=== PATIENT | female | born 1985 | race African-American/Black ===

== ENCOUNTER 2016-10-31 07:51 | Emergency (ER) | payer OTHER ==
[2016-10-31 07:59] VITALS: BP 123/75; PULSE 109; TEMP 99.3; BMI 39.4
[2016-10-31] MEDS ORDERED: IBUPROFEN 400 MG TABLET (FP) PO ONE ×2 (08:33→08:37)
--- NOTE | 2016-10-31 08:38 | PDOC ---
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 States took tramadol with minimal resolved. Timing/Duration: reports: changing over time, getting worse Severity: reports: moderate Past History - Travel Traveled outside of the country in the last 30 days: No Close contact w/someone who was outside of country & ill: No - Past Medical History Allergies/Adverse Reactions: Allergies Allergy/AdvReac Type Severity Reaction Status Date / Time No Known Allergies Allergy Verified 10/31/16 08:00 Home Medications: Ambulatory Orders Ibuprofen [Motrin -] 400 mg PO QID PRN #28 tablet 10/31/16 Oseltamivir Phosphate [Tamiflu -] 75 mg PO BID #10 capsule 10/31/16 Tramadol HCl [Ultram] 50 mg PO BID 10/31/16 Anemia: No Asthma: No Cancer: No 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11) CVA: No COPD: No CHF: No Dementia: No Diabetes: Yes (GESTATIONAL) GI Disorders: Yes (GERD,HEMORRHOIDS,CONSTIPATION) Disorders: Yes (RENAL CYST,FIBROIDS) HTN: No Hypercholesterolemia: No Liver Disease: Yes (HEMANGIOMA OF LIVER) Seizures: No Thyroid Disease: No - Immunization History Td Vaccination: Yes Immunization Up to Date: Yes (UNSURE) - Psycho/Social/Smoking Cessation Hx Anxiety: No Suicidal Ideation: No Smoking Status: No Smoking History: Never smoked Have you smoked in the past 12 months: No Number of Cigarettes Smoked Daily: 0 Hx Alcohol Use: No Drug/Substance Use Hx: No Substance Use Type: None Hx Substance Use Treatment: Yes Review of Systems - Review of Systems Able to Perform ROS?: Yes Is the patient limited Sinhala proficient: Yes Constitutional: Yes: Symptoms Reported, See HPI, Chills, Fever, Loss of Appetite , Malaise HEENTM: Yes: Symptoms Reported, See HPI, Ear Pain, Nose Congestion, Throat Pain , Difficulty Swallowing Respiratory: Yes: Symptoms reported, See HPI, Cough (nonproductive). No: Wheezing ABD/GI: Yes: Symptoms Reported, See HPI, Nausea Musculoskeletal: Yes: Symptoms Reported, See HPI, Joint Stiffness Integumentary: Yes: See HPI. No: Symptoms Reported Neurological: Yes: Symptoms reported, See HPI, Headache All Other Systems: Reviewed and Negative *Physical Exam - Vital Signs Last Vital Signs Temp Pulse Resp BP Pulse Ox 99.3 F 109 H 18 123/75 96 10/31/16 07:55 10/31/16 07:55 10/31/16 07:55 10/31/16 07:55 10/31/16 07:55 - Physical Exam General Appearance: Yes: Nourished, Appropriately Dressed, Apparent Distress, Mild Distress HEENT: positive: GORDON, TMs Normal (congested but landmarks easily visualized), Pharynx Normal, Pharyngeal Erythema, Nasal Congestion, Rhinorrhea Neck: positive: Supple, Lymphadenopathy (R), Lymphadenopathy (L) Respiratory/Chest: positive: Lungs Clear, Normal Breath Sounds Cardiovascular: positive: Regular Rhythm, Regular Rate Gastrointestinal/Abdominal: positive: Normal Bowel Sounds, Soft. 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 Will treat with Tamiflu *DC/Admit/Observation/Transfer Diagnosis at time of Disposition: Upper respiratory infection, acute - Discharge Dispostion Disposition: HOME Condition at time of disposition: Stable Admit: No - Prescriptions Prescriptions: Ibuprofen [Motrin -] 400 mg PO QID PRN #28 tablet PRN Reason: Pain Oseltamivir Phosphate [Tamiflu -] 75 mg PO BID #10 capsule - Patient Instructions Printed Discharge Instructions: DI for Viral Upper Respiratory Infection -- Adult Additional Instructions: Rest, drink lots of fluids: Teas, water, soups, Pedialyte Saltwater gargles Steamy showers/seem to face break up mucus Old-fashioned treatments help! Avoid contact with others until fevers and cough resolved as this is very contagious Lots of handwashing and good hygiene Continue [id number] medications for symptomatic relief Tylenol or Motrin for fever and pain Take all of Tamiflu as directed: 1 tab every 12 hours for 5 days Followup with private physician in one to 2 days as needed or if worsening Return to emergency department for worsened symptoms, fevers, dehydration Influenza takes between 5 and 7 days for resolution To not participate in any activity, work, or school until fevers and cough are gone for at least one day - Post Discharge Activity Work/School Note: Back to Work
== END 2016-10-31 08:41 | disposition home or self-care (01) ==
LOC: JER 07:51 → JERFT 07:51
DX: J06.9 Acute upper respiratory infection, unspecified (principal)
CPT/HCPCS: 99281-25

== ENCOUNTER 2016-11-06 20:04 | Emergency (ER) | payer OTHER ==
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
[2016-11-06 20:13] VITALS: BP 106/72; PULSE 88; BMI 37.8
[2016-11-06] MEDS ORDERED: SILVER SULFADIAZINE 1% TOP CREAM 50 GM JAR TP ONE ×2 (20:17→20:26)
[2016-11-06] MEDS ORDERED: KETOROLAC TROMETHAMINE 60 MG/2 ML VIAL ONE (20:17)
[2016-11-06] MEDS ORDERED: ACETAMINOPHEN 500 MG TABLET (FP) PO ONE (20:25)
[2016-11-06] MEDS ORDERED: ACETAMINOPHEN 325 MG TABLET (FP) ONE (20:26)
== END 2016-11-06 20:34 | disposition home or self-care (01) ==
LOC: FER 20:04
PROC: 2W2NX4Z Dressing of Right Upper Leg using Bandage (ICD-10-PCS; principal; 2016-11-06)
DX: T24.011A Burn of unspecified degree of right thigh, initial encounter (principal); X10.0XXA Contact with hot drinks, initial encounter; Y93.9 Activity, unspecified; Y92.9 Unspecified place or not applicable; K21.9 Gastro-esophageal reflux disease without esophagitis; D18.09 Hemangioma of other sites
CPT/HCPCS: 99281-25

== ENCOUNTER 2017-03-18 20:29 | Emergency (ER) | payer OTHER ==
[2017-03-18 20:43] VITALS: BP 114/82; PULSE 81; TEMP 98.6; BMI 37.8
[2017-03-18] MEDS ORDERED: ACETAMINOPHEN 500 MG TABLET (FP) PO ONE (20:43)
[2017-03-18] MEDS ORDERED: ACETAMINOPHEN 325 MG TABLET (FP) ONE (20:44)
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
== END 2017-03-18 20:48 | disposition home or self-care (01) ==
LOC: FER 20:29
DX: S63.502A Unspecified sprain of left wrist, initial encounter (principal); V43.42XA Person boarding or alighting a car injured in collision with other type car, initial encounter; Y93.89 Activity, other specified; Y92.410 Unspecified street and highway as the place of occurrence of the external cause
CPT/HCPCS: 99282-25

== ENCOUNTER 2018-09-08 10:11 | Emergency (ER) | payer OTHER ==
[2018-09-08 10:20] VITALS: TEMP 97.8; BMI 37.8
--- NOTE | 2018-09-08 11:19 | PDOC ---
History of Present Illness - General Chief Complaint: Head/Neck problem Stated Complaint: SENY BY PCP Time Seen by Provider: 09/08/18 10:32 History Source: Patient Exam Limitations: No Limitations - History of Present Illness Initial Comments: 33 yo F w no sig pmh presents to the ER from urgent care stating she has neck discomfort along with occasional numbness on the left side of her face. She reports that she was told by urgent care that she has an asymmetrical and needs to come in to be evaluated for it. I personally do not see any asymmetry in her smile. 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 She denies current chest pain, SOB, difficulty breathing, headache, blurry vision, arm or leg pain, back pain, abdominal pain, nausea, vomiting, recent fevers, chills infections, weakness, numbness, tingling or chills. PCP: Jose Manuel Carlton Allergies: NKA, NKDA Social Hx: Denies smoking, drinking, or other substance usage. 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11) CVA: No COPD: No CHF: No Dementia: No Diabetes: Yes (GESTATIONAL) GI Disorders: Yes (GERD,HEMORRHOIDS,CONSTIPATION) Disorders: Yes (RENAL CYST,FIBROIDS) HTN: No Hypercholesterolemia: No Liver Disease: Yes (HEMANGIOMA OF LIVER) Seizures: No Thyroid Disease: No - Immunization History Td Vaccination: Yes Immunization Up to Date: Yes (UNSURE) - Suicide/Smoking/Psychosocial Hx Smoking Status: No Smoking History: Never smoked Have you smoked in the past 12 months: No Number of Cigarettes Smoked Daily: 0 Hx Alcohol Use: No Drug/Substance Use Hx: No Substance Use Type: None Hx Substance Use Treatment: Yes Review of Systems - Review of Systems Constitutional: No: Chills, Diaphoresis, Fever, Loss of Appetite, Malaise HEENTM: No: Eye Pain, Blurred Vision, Tearing, Recent change in vision, Double Vision, Cataracts, Ear Pain, Ocular Prothesis, Ear Discharge, Nose Pain, Nose Congestion, Tinnitus, Nose Bleeding, Hearing Loss, Throat Pain, Throat Swelling , Mouth Pain, Dental Problems, Difficulty Swallowing, Mouth Swelling, Other Respiratory: No: Cough, Shortness of Breath, Stridor, Wheezing Cardiac (ROS): No: Chest Pain, Edema, Irregular Heart Rate, Lightheadedness, Palpitations, Syncope ABD/GI: No: Abdominal Distended, Abd. Pain w/ defecation, Blood Streaked Bowels , Constipated, Diarrhea, Nausea, Vomiting : No: Burning, Dysuria, Discharge Musculoskeletal: Yes: Neck Pain. No: Back Pain, Joint Pain, Muscle Pain Integumentary: No: Bruising, Dryness, Erythema Neurological: Yes: Numbness, Paresthesia. No: Headache, Seizure, Tingling, Tremors, Weakness Psychiatric: No: Anxiety, Depression, Frequent Crying Endocrine: No: Excessive Sweating, Flushing Hematologic/Lymphatic: No: Anemia, Blood Clots, Easy Bleeding *Physical Exam - Vital Signs Last Vital Signs Temp Pulse Resp BP Pulse Ox 97.8 F 78 18 131/81 99 09/08/18 10:14 09/08/18 10:14 09/08/18 10:14 09/08/18 10:14 09/08/18 10:14 - Physical Exam General Appearance: Yes: Nourished, Appropriately Dressed. No: Apparent Distress HEENT: positive: EOMI, GORDON, Normal ENT Inspection, Normal Voice, Hearing Grossly Normal, Other (No facial asymmetry ). negative: Muffled/Hoarse voice, Pharyngeal Erythema, Nasal Congestion, Rhinorrhea, Sinus Tenderness, Hearing Decreased Neck: positive: Trachea midline, Supple. negative: Rigid, Decreased range of motion, Lymphadenopathy (R), Lymphadenopathy (L) Respiratory/Chest: positive: Lungs Clear, Normal Breath Sounds. negative: Respiratory Distress, Accessory Muscle Use, Stridor Cardiovascular: positive: Regular Rhythm, Regular Rate, S1, S2 Vascular Pulses: Dorsalis-Pedis (R): 2+, Doralis-Pedis (L): 2+ Gastrointestinal/Abdominal: positive: Normal Bowel Sounds, Soft. negative: Guarding, Rebound Rectal Exam: positive: deferred Lymphatic: negative: Adenopathy Musculoskeletal: positive: Normal Inspection. negative: CVA Tenderness, CVA Tenderness (R), CVA Tenderness (L), Decreased Range of Motion, Vertebral Tenderness Extremity: positive: Normal Capillary Refill, Normal Inspection, Normal Range of Motion. 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 negative: Abnormal Cranial NS, EOM Palsy, Facial Droop, Numbness, Sensory Deficit, Confused, Disoriented, Depressed Affect Moderate Sedation - Procedure Monitoring Vital Signs: Procedure Monitoring Vital Signs Temperature 97.8 F 09/08/18 10:14 Pulse Rate 78 09/08/18 10:14 Respiratory Rate 18 09/08/18 10:14 Blood Pressure 131/81 09/08/18 10:14 O2 Sat by Pulse Oximetry (%) 99 09/08/18 10:14 ED Treatment Course - LABORATORY CBC & Chemistry Diagram: 09/08/18 12:31 09/08/18 12:31 Medical Decision Making - Medical Decision Making 33 yo F w no sig pmh presents to the ER from urgent care stating she has neck discomfort along with occasional numbness on the left side of her face. DDx IBNLT: Otto palsy, MSK neck strain, Carotid vascular injury, pulled muscle, cva/tia Plan: Cbc, Cmp, robaxin, motrin, +/- Neuro consult, re-assess. Labs unremarkable and WNL - Patient feels much better after robaxin and motrin. - Patient would like to get out of here. Will DC with PCP Fu *DC/Admit/Observation/Transfer Diagnosis at time of Disposition: Neck pain - Discharge Dispostion Disposition: HOME Condition at time of disposition: Improved Decision to Admit order: No - Referrals Referrals: Jose Manuel Carlton MD [Primary Care Provider] - - Patient Instructions Printed Discharge Instructions: Neck Pain (Alternative Therapy), DI for Neck Pain Additional Instructions: You came into the ER with neck pain. We believe this pain is musculoskeletal in nature. We are sending a muscle relaxer to your [facility] pharmacy, please make sure to go and pick it up. Please make sure to schedule an appointment with your primary care doctor in the next 3 to 5 days. Come back to the ER immediately if your pain worsens you get a bacd headache, have blurry vision, or any other new or worsening concerns. Thank you for coming to the [facility]. We hope you feel better soon! Print Language: CITIZEN [place] - Post Discharge Activity
--- NOTE | 2018-09-08 11:37 | PDOC ---
Attending Attestation - Resident Resident Name: Surya Feldman - ED Attending Attestation I have performed the following: I have examined & evaluated the patient, The case was reviewed & discussed with the resident, I agree w/resident's findings & plan, Exceptions are as noted - HPI HPI: 09/08/18 12:45 Ms Romo is a 33 yo F who presents to the ER with a complaint of left neck pain Pt has a h/o gestational diabetes, no diabetes now, no htn, no hld Pt states that her symptoms began yesterday, she awoke with them No trauma No arm or leg weakness She was seen at the urgent care today They were concerned about some asymmetry of her smile They were also concerned about "an infection" - Physicial Exam PE: 09/08/18 12:53 On examination: Pt is awake and alert She answers questions appropriately RRR CTA B/L NO nuchal rigidity Point tenderness left origin of the trapezius No sensory deficit No weakness CN intact - Medical Decision Making 09/08/18 13:21 will do labs Will do UA Re assess 09/08/18 14:34 Laboratory Tests 09/08/18 09/08/18 12:31 12:31 WBC 6.7 Hgb 14.1 Hct 40.1 Plt Count 357 BUN 12 Creatinine 0.9 UA negative Will discharge patient to home Follow up with PMD Can take robaxin for pain
[2018-09-08] MEDS ORDERED: IBUPROFEN 600 MG TABLET (FP) PO ONE ×2 (11:49→12:00)
[2018-09-08] MEDS ORDERED: METHOCARBAMOL 500 MG TABLET PO ONE (11:49)
[2018-09-08] MEDS ORDERED: METHOCARBAMOL 500 MG TABLET ONE (12:00)
[2018-09-08 12:48] LABS: BASO % 0.2 % (0-2.0); EOS % 1.1 % (0-4.5); HEMATOCRIT 40.1 % (32.4-45.2); HEMOGLOBIN 14.1 GM/dL (10.7-15.3); MCH 31.5 pg (25.7-33.7); MCHC 35.2 g/dl (32.0-36.0); MEAN CELL VOLUME 89.7 fl (80-96); MEAN PLT VOLUME 6.9 fl (7.5-11.1); MONO % 7.5 % (3.8-10.2); NEUT % 65.2 % (42.8-82.8); PLATELET COUNT 357 K/MM3 (134-434); RBC 4.46 M/mm3 (3.60-5.2); RDW 13.6 % (11.6-15.6); WHITE BLOOD COUNT 6.7 K/mm3 (4.0-10.0)
[2018-09-08 13:30] LABS: ALBUMIN 3.5 g/dl (3.4-5.0); ALK PHOS 57 U/L (45-117); ANION GAP 4 MMOL/L (8-16); BILIRUBIN,TOTAL 0.5 mg/dL (0.2-1); BLOOD UREA NITROGEN 12 mg/dL (7-18); CALCIUM 8.4 mg/dL (8.5-10.1); CHLORIDE 105 mmol/L (98-107); CO2 28 mmol/L (21-32); CREATININE 0.9 mg/dL (0.55-1.3); GLUCOSE,RANDOM 88 mg/dL (74-106); POTASSIUM 4.4 mmol/L (3.5-5.1); SGOT/AST 16 U/L (15-37); SGPT/ALT 34 U/L (13-61); SODIUM 137 mmol/L (136-145); TOT PROT 7.4 g/dl (6.4-8.2)
[2018-09-08 13:44] LABS: URINE APPEARANCE CLEAR; URINE BILIRUBIN NEGATIVE (<2.0 mg/dL); URINE COLOR LTYELLOW; URINE GLUCOSE (UA) NEGATIVE (NEGATIVE); URINE KETONE NEGATIVE (NEGATIVE); URINE LEUK ESTERASE NEGATIVE (NEGATIVE); URINE NITRITE NEGATIVE (NEGATIVE); URINE PROTEIN NEGATIVE (NEGATIVE); URINE UROBILINOGEN NEGATIVE mg/dL (0.2-1.0)
[2018-09-08 14:41] VITALS: BP 124/78; PULSE 63
== END 2018-09-08 14:37 | disposition home or self-care (01) ==
LOC: JER 10:11
DX: M54.2 Cervicalgia (principal); Z87.19 Personal history of other diseases of the digestive system; Z86.32 Personal history of gestational diabetes; Z87.448 Personal history of other diseases of urinary system
CPT/HCPCS: 36415; 80053; 81003; 85025; 99282-25

== ENCOUNTER 2019-05-12 23:19 | Emergency (ER) | payer OTHER ==
--- NOTE | 2019-05-13 00:56 | PDOC ---
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11) CVA: No COPD: No CHF: No Dementia: No Diabetes: Yes (GESTATIONAL) GI Disorders: Yes (GERD,HEMORRHOIDS,CONSTIPATION) Disorders: Yes (RENAL CYST,FIBROIDS) HTN: No Hypercholesterolemia: No Liver Disease: Yes (HEMANGIOMA OF LIVER) Seizures: No Thyroid Disease: No - Immunization History Td Vaccination: Yes Immunization Up to Date: Yes (UNSURE) - Suicide/Smoking/Psychosocial Hx Smoking Status: No Smoking History: Never smoked Have you smoked in the past 12 months: No Number of Cigarettes Smoked Daily: 0 Hx Alcohol Use: No Drug/Substance Use Hx: No Substance Use Type: None Hx Substance Use Treatment: Yes ED Treatment Course - LABORATORY CBC & Chemistry Diagram: 05/13/19 01:50 05/13/19 01:50 *DC/Admit/Observation/Transfer Diagnosis at time of Disposition: Leg pain, Dehydration, Bakers cyst - Discharge Dispostion Disposition: HOME Condition at time of disposition: Fair Decision to Admit order: No - Referrals Referrals: [facility] [place] [Provider Group] - Patient Instructions Additional Instructions: You were seen for the evaluation of your dehydration and leg pain. No blood clot was found. Please maintain adequate hydration. Please follow up with your primary medical doctor within 3 days after discharge for follow up care and management. Please return to the emergency department if you have worsening symptoms or new concerning symptoms. Thank you. - Post Discharge Activity
[2019-05-13 01:01] VITALS: BMI 38.7
[2019-05-13] MEDS ORDERED: SODIUM CHLORIDE 1,000 ML IV STA (01:32)
[2019-05-13] MEDS ORDERED: MAGNESIUM SULF 50% (8.12 MEQ/2 ML-1 GM VIAL) IVPB ONE (01:32)
--- NOTE | 2019-05-13 01:53 | PDOC ---
Documentation entered by Isaías Florentino SCRIBE, acting as scribe for Lori Byers MD. Lori Byers MD: This documentation has been prepared by the Mishel rod Xhesika, SCRIBE, under my direction and personally reviewed by me in its entirety. I confirm that the documentation accurately reflects all work, treatment, procedures, and medical decision making performed by me. Attending Attestation - Resident Resident Name: John Graham - ED Attending Attestation I have performed the following: I have examined & evaluated the patient, The case was reviewed & discussed with the resident, I agree w/resident's findings & plan - HPI HPI: 05/13/19 01:07 The patient is a 33 year old female with a significant PMH of GERD, gestational diabetes, hemorrhoids, and elevated chronic D-dimer who presents to the emergency department for sudden onset of b/l calf pain. The patient states her calf pain feels like a Jani horse and is associated with SOB and dehydration. 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 patient notes she has had multiple CT's and US's in the past that were all normal. Patient states she endorses multiple financial stresses causing her to work constantly. patient denies history of PE. The patient denies chest pain, headache and dizziness. Denies fever, chills, cough, nausea, vomiting, diarrhea and constipation. Denies dysuria, frequency, urgency and hematuria. Allergies: NKDA PCP: Jose Manuel Carlton - Physicial Exam PE: 05/13/19 01:29 GENERAL: Awake, alert, and fully oriented, in no acute distress HEAD: No signs of trauma EYES: PERRLA, EOMI, sclera anicteric, conjunctiva clear ENT: Auricles normal inspection, hearing grossly normal, nares patent, oropharynx clear without exudates. Moist mucosa NECK: Normal ROM, supple, no lymphadenopathy, JVD, or masses LUNGS: Breath sounds equal, clear to auscultation bilaterally. No wheezes, and no crackles HEART: Regular rate and rhythm, normal S1 and S2, no murmurs, rubs or gallops ABDOMEN: (+) obese, Soft, nontender, normoactive bowel sounds. No guarding, no rebound. No masses EXTREMITIES: Normal range of motion, no edema. No clubbing or cyanosis. No cords, erythema, or tenderness NEUROLOGICAL: Cranial nerves II through XII grossly intact. Normal speech, normal gait SKIN: Warm, Dry, normal turgor, no rashes or lesions noted. - Medical Decision Making 05/13/19 01:39 Pt is obese and she has a normal exam. 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 She will be hydrated here and we will check a bilat leg sono. 05/13/19 01:53 Patient Name: SARANYA POSADA THIS IS A PRELIMINARY REPORT FROM [facility] DATE OF SERVICE: 2019-05-13 01:10:30 IMAGES: 45 EXAM: Bilateral lower extremity duplex venous ultrasound HISTORY: Bilateral calf tenderness COMPARISON: None. FINDINGS: Negative for right or left lower extremity deep venous thrombosis. There is a 5.6 cm x 1.1 cm x 2.9 cm heterogeneous appearing right popliteal fossa/Hart's cyst possibly with internal debris .
[2019-05-13] MEDS ORDERED: MAGNESIUM 1GM/D5W - 2 GM/200 ML IVPB IVPB ONE (02:03)
[2019-05-13 02:31] LABS: BASO % 0.3 % (0-2.0); EOS % 2.6 % (0-4.5); HEMOGLOBIN 13.9 GM/dL (10.7-15.3); LYMPH % 33.8 % (8-40); MEAN PLT VOLUME 6.9 fl (7.5-11.1); MONO % 7.8 % (3.8-10.2); NEUT % 55.5 % (42.8-82.8); PLATELET COUNT 365 K/MM3 (134-434); RBC 4.62 M/mm3 (3.60-5.2); RDW 13.7 % (11.6-15.6); WHITE BLOOD COUNT 8.6 K/mm3 (4.0-10.0)
[2019-05-13 02:51] LABS: ALBUMIN 3.8 g/dl (3.4-5.0); BILIRUBIN,TOTAL 0.5 mg/dL (0.2-1); CALCIUM 9.3 mg/dL (8.5-10.1); CREATININE 1.1 mg/dL (0.55-1.3); POTASSIUM 4.3 mmol/L (3.5-5.1); TOT PROT 7.9 g/dl (6.4-8.2)
[2019-05-13 04:56] VITALS: BP 120/76; PULSE 90; TEMP 98
--- NOTE | 2019-05-14 12:48 | EKG ---
Test Reason : Blood Pressure : / mmHG Vent. Rate : 064 BPM Atrial Rate : 064 BPM P-R Int : 130 ms QRS Dur : 086 ms QT Int : 414 ms P-R-T Axes : 033 009 011 degrees QTc Int : 427 ms NORMAL SINUS RHYTHM NORMAL ECG WHEN COMPARED WITH ECG OF 22-APR-2016 06:54, NO SIGNIFICANT CHANGE WAS FOUND Confirmed by Cresencio Cooper MD ([id number]) on 05/14/2019 12:48:21 PM Referred By: Confirmed By:Cresencio Cooper MD
== END 2019-05-13 04:56 | disposition home or self-care (01) ==
LOC: JER 23:19
PROC: 3E033GC Introduction of Other Therapeutic Substance into Peripheral Vein, Percutaneous Approach (ICD-10-PCS; principal; 2019-05-12)
DX: M71.21 Synovial cyst of popliteal space [Baker], right knee (principal); E86.0 Dehydration
CPT/HCPCS: 36415; 80053; 84702; 85025; 93005; 93010; 93970-TC; 99283-25; J7030

== ENCOUNTER 2019-06-28 01:49 | Emergency (ER) | payer OTHER ==
[2019-06-28] MEDS ORDERED: AMOX TR/POT CLAV 875MG/125MG TABLETS (FP) PO ONE (03:05)
[2019-06-28] MEDS ORDERED: IBUPROFEN 600 MG TABLET (FP) PO ONE ×2 (03:05→03:44)
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
[2019-06-28 03:42] VITALS: BP 120/83; PULSE 90; TEMP 98.3; BMI 36.6
[2019-06-28] MEDS ORDERED: AMOX TR/POT CLAV 875MG/125MG TABLETS (FP) ONE (03:43)
[2019-06-28] MEDS ORDERED: DIPHTH,PERTUSS(ACELL),TET 0.5 ML DISP.SYRIN IM ONE ×2 (03:47→03:49)
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
== END 2019-06-28 03:57 | disposition home or self-care (01) ==
LOC: JER 01:49
PROC: 3E0234Z Introduction of Serum, Toxoid and Vaccine into Muscle, Percutaneous Approach (ICD-10-PCS; principal; 2019-06-28)
DX: S61.350A Open bite of right index finger with damage to nail, initial encounter (principal); S51.051A Open bite, right elbow, initial encounter; S01.351A Open bite of right ear, initial encounter; Y04.1XXA Assault by human bite, initial encounter; Y93.89 Activity, other specified; Y92.038 Other place in apartment as the place of occurrence of the external cause; Y99.8 Other external cause status; Y07.12 Biological mother, perpetrator of maltreatment and neglect
CPT/HCPCS: 90715; 99281-25

== ENCOUNTER 2020-06-13 21:18 | Emergency (ER) | payer OTHER ==
--- OUTSIDE RECORDS SUMMARY | 2020-06-13 21:28 | XMS ---
:1985 Author Organization [facility] Care Team Providers Name Role Phone URIELCROWFREDERICK Harper Unavailable Unavailable ZENON PEÑA, [id number] Unavailable Unavailable Ben Iniguez MD Unavailable Unavailable TANJA RAMEY Unavailable Unavailable JO MOYER Unavailable Unavailable Re-disclosure Warning The records that you are about to access may contain information from federally- assisted alcohol or drug abuse programs. If such information is present, then the following federally mandated warning applies: This information has been disclosed to you from records protected by federal confidentiality rules (42 CFR part 2). The federal rules prohibit you from making any further disclosure of this information unless further disclosure is expressly permitted by the written consent of the person to whom it pertains or as otherwise permitted by 42 CFR part 2. A general authorization for the release of medical or other information is NOT sufficient for this purpose. The Federal rules restrict any use of the information to criminally investigate or prosecute any alcohol or drug abuse patient.The records that you are about to access may contain highly sensitive health information, the redisclosure of which is protected by Article 27-F of the [place] State Public Health law. If you continue you may haveaccess to information: Regarding HIV / AIDS; Provided by facilities licensed or operated by the [facility] Office of Mental Health; or Provided by the [facility] Office for People With Developmental Disabilities. If such information is present, then the following [facility] mandated warning applies: This information has been disclosed to you from confidential records which are protected by state law. State law prohibits you from making any further disclosure of this information without the specific written consent of the person to whom it pertains, or as otherwise permitted by law. Any unauthorized further disclosure in violation of state law may result in a fine or assisted sentence or both. A general authorization for the release of medical or other information is NOT sufficient authorization for further disclosure. Encounters Encounter Providers Location Date Indications Data Source(s ) Outpatient Attender: KAROLINE 06/02/2020 [facility]68.59 [facility]: [facility]00 AM [email or web address]UNRefer[facility]: [id number] ZENNO PEÑA D68.59 Outpatient Attender: JOÃO 02/27/2020 06:00:00 M79.89 [facility] ZVIAdmitter: MARBIN MOYER EDT [facility] ZVIReferrer: Franci BALDERRAMA M79.89 Outpatient Attender: Ben 01/23/2020 HISTORY OF Kaitlynn Iniguez MD 04:19:00 PM EDT [facility] Out[facility] Attender: TACOS 01/02/2020 R05 R60.0 [facility] CHRISTINEAdmitter: KAROLINE, 03:37:00 PM EDT Health Care [facility]ITALAYUNReferrer: Corporat ion FREDERICK BALDERRAMA R05 R60.0 Insurance Providers Payer name Policy type Policy ID Covered Covered libertarian's Policy P sophy / Coverage libertarian ID relationship to Moise Inf ormation type moise [facility] [id number] SP [id number] 400 CARE HMO/POS/EPO [facility] [id number] SP [id number] 400 CARE HMO/POS/EPO ERSKINE [id number] PT [id number] [facility]ALTHCARE [facility] [id number] 1 [id number] [facility] [id number] PT [id number] 201 PLAN Problems, Conditions, and Diagnoses Code Display Name Description Problem Type Effective Data Sour ce(s) Dates 59 Other primary OTHER PRIMARY Diagnosis 06/02/2020 [facility] thrombophilia THROMBOPHILIA 11:46:00 AM [facility] Nexess M79.89 Other specified OTHER SPECIFIED Diagnosis 02/27/2020 [place] soft tissue SOFT TISSUE 06:00:00 AM [facility] th disorders DISORDERS EDT [facility] U07.1 U07.1 U07.1 Diagnosis 01/23/2020 [place] 04:19:00 PM Hospital EDT R79.1 Abnormal R79.1 Diagnosis 01/23/2020 [place] coagulation 04:19:00 PM Hospital profile EDT R60.0 Localized edema LOCALIZED EDEMA Diagnosis 01/02/2020 [place] 03:37:00 PM [facility] EDT [facility] R05 Cough COUGH Diagnosis 01/02/2020 [place] 03:37:00 PM [facility] EDT [facility] Results ID Date Data Source [id number] 12/21/2019 12:00:00 AM EDT [facility] Name Value Range Interpretation Code Description Data Laure rce(s) Supporting Document(s ) 2019-nCoV [facility] RNA XXX HAYDEN+probe- Imp This lab was ordered by [facility] and reported by [employer] Procedure
[2020-06-13 21:34] VITALS: BP 125/86; PULSE 85; TEMP 98.1; BMI 38.6
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
[2020-06-14] MEDS ORDERED: IBUPROFEN 600 MG TABLET (FP) PO ONE (01:48)
== END 2020-06-14 02:05 | disposition home or self-care (01) ==
LOC: FER 21:18
DX: S46.911A Strain of unspecified muscle, fascia and tendon at shoulder and upper arm level, right arm, initial encounter (principal); S16.1XXA Strain of muscle, fascia and tendon at neck level, initial encounter
CPT/HCPCS: 99283-25

== ENCOUNTER 2020-10-21 15:07 | Emergency (ER) | payer OTHER ==
[2020-10-21 15:14] VITALS: BMI 39.4
[2020-10-21 15:36] VITALS: BP 118/74; PULSE 78; TEMP 98.1
[2020-10-21 15:56] LABS: THROAT:GRP A STREP Negative (Negative)
== END 2020-10-21 16:17 | disposition home or self-care (01) ==
LOC: FER 15:07
DX: R07.0 Pain in throat (principal)
CPT/HCPCS: 71045-TC-FY; 87070; 87880; 99284-25; C9803; U0003

== ENCOUNTER 2021-03-14 01:56 | Emergency (ER) | payer OTHER ==
[2021-03-14 02:14] VITALS: BP 126/81; PULSE 71; TEMP 98.2; BMI 40.8
[2021-03-14 03:47] LABS: BASO % 0.2 % (0-2.0); EOS % 1.6 % (0-4.5); HEMATOCRIT 37.2 % (32.4-45.2); HEMOGLOBIN 12.3 GM/dL (10.7-15.3); LYMPH % 25.9 % (8-40); MCH 28.3 pg (25.7-33.7); MCHC 33.1 g/dl (32.0-36.0); MEAN CELL VOLUME 85.5 fl (80-96); MEAN PLT VOLUME 6.6 fl (7.5-11.1); MONO % 8.6 % (3.8-10.2); NEUT % 63.7 % (42.8-82.8); PLATELET COUNT 433 10^3/uL (134-434); RBC 4.35 M/mm3 (3.60-5.2); RDW 14.9 % (11.6-15.6); WHITE BLOOD COUNT 8.4 K/mm3 (4.0-10.0)
[2021-03-14 03:58] LABS: CHLORIDE 107 mmol/L (98-107); INR 0.97 (0.83-1.09); SODIUM 139 mmol/L (136-145)
[2021-03-14 04:00] LABS: CALCIUM 8.7 mg/dL (8.5-10.1)
[2021-03-14 04:01] LABS: ALBUMIN 3.6 g/dl (3.4-5.0); ANION GAP 5 MMOL/L (8-16); CO2 28 mmol/L (21-32); GLUCOSE,RANDOM 101 mg/dL (74-106); LIPASE 68 U/L (73-393)
[2021-03-14 04:04] LABS: CREATININE 0.9 mg/dL (0.55-1.3); PHOSPHOROUS 3.4 mg/dL (2.5-4.9); SGOT/AST 19 U/L (15-37); SGPT/ALT 33 U/L (13-61)
[2021-03-14 04:05] LABS: BILIRUBIN,TOTAL 0.3 mg/dL (0.2-1); TOT PROT 7.4 g/dl (6.4-8.2)
[2021-03-14 04:07] LABS: ALK PHOS 67 U/L (45-117)
== END 2021-03-14 06:22 | disposition home or self-care (01) ==
LOC: JER 01:56
DX: R00.2 Palpitations (principal); K92.1 Melena
CPT/HCPCS: 36415; 70450-TC; 80053; 82272; 82550; 83690; 83735; 84100; 84443; 84484; 84703; 85025; 85610; 85730; 93005; 93010; 99284-25

== ENCOUNTER 2021-07-01 21:16 | Emergency (ER) | payer OTHER ==
[2021-07-01 21:27] VITALS: BP 130/84; PULSE 105; TEMP 98.7; BMI 40.8
[2021-07-01] MEDS ORDERED: SILVER SULFADIAZINE 1% TOP CREAM 50 GM JAR TP ONE ×2 (22:05→22:07)
[2021-07-01] MEDS ORDERED: CLINDAMYCIN HCL 300 MG CAPSULE PO ONE (22:05)
[2021-07-01] MEDS ORDERED: CLINDAMYCIN HCL 150 MG CAPSULE (FP) ONE (22:07)
== END 2021-07-01 22:22 | disposition home or self-care (01) ==
LOC: FER 21:16
DX: T22.211A Burn of second degree of right forearm, initial encounter (principal)
CPT/HCPCS: 99283-25

== ENCOUNTER 2021-08-21 21:18 | Inpatient (IN) | payer OTHER ==
[2021-08-21 21:42] VITALS: BMI 43.2
[2021-08-21 22:52] LABS: BASO % 0.6 % (0-2.0); EOS % 2.2 % (0-4.5); HEMATOCRIT 37.6 % (32.4-45.2); HEMOGLOBIN 12.5 GM/dL (10.7-15.3); LYMPH % 32.1 % (8-40); MCH 27.3 pg (25.7-33.7); MCHC 33.1 g/dl (32.0-36.0); MEAN CELL VOLUME 82.5 fl (80-96); MEAN PLT VOLUME 6.9 fl (7.5-11.1); MONO % 10.6 % (3.8-10.2); NEUT % 54.5 % (42.8-82.8); PLATELET COUNT 433 10^3/uL (134-434); RBC 4.56 M/mm3 (3.60-5.2); RDW 16.7 % (11.6-15.6)
[2021-08-21 23:00] LABS: INR 1.04 (0.83-1.09); PROTHROMBIN TIME (PATIENT) 11.7 SEC (9.7-13.0)
[2021-08-21 23:02] LABS: ACTIVATED PTT 28.9 SECONDS (25.2-36.5)
[2021-08-21 23:14] LABS: CHLORIDE 110 mmol/L (98-107); SODIUM 136 mmol/L (136-145)
[2021-08-21 23:19] LABS: ALBUMIN 3.1 g/dl (3.4-5.0); BLOOD UREA NITROGEN 11.8 mg/dL (7-18); CALCIUM 8.6 mg/dL (8.5-10.1); CO2 20 mmol/L (21-32); GLUCOSE,RANDOM 90 mg/dL (74-106)
[2021-08-21 23:22] LABS: CHOLESTEROL 160 mg/dL (50-200); LDL CHOLESTEROL (ONLY SJRH) 99 mg/dL (5-100); SGOT/AST 47 U/L (15-37); SGPT/ALT 40 U/L (13-61); TRIGLYCERIDES 59 mg/dL (0-150)
[2021-08-21 23:24] LABS: ALK PHOS 76 U/L (45-117); BILIRUBIN,TOTAL 0.3 mg/dL (0.2-1)
[2021-08-21 23:27] LABS: HDL CHOLESTEROL 56 mg/dL (40-60)
[2021-08-22 00:11] LABS: ANION GAP 6 MMOL/L (8-16)
[2021-08-22 02:18] LABS: EPI CELLS >36 /uL (0-25.1); HYALINE CASTS 1 /uL (0-3.1); URINE APPEARANCE CLOUDY; URINE BACTERIA 745 /uL (0-1359); URINE BILIRUBIN NEGATIVE (NEGATIVE); URINE COLOR YELLOW; URINE GLUCOSE (UA) NEGATIVE (NEGATIVE); URINE KETONE NEGATIVE (NEGATIVE); URINE LEUK ESTERASE TRACE (NEGATIVE); URINE NITRITE NEGATIVE (NEGATIVE); URINE PROTEIN NEGATIVE (NEGATIVE); URINE RBC 10 /uL (0-23.9); URINE UROBILINOGEN 0.2 mg/dL (0.2-1.0); URINE WBC 29 /uL (0-25.8)
[2021-08-22 02:32] LABS: BLOOD UREA NITROGEN 10.5 mg/dL (7-18); CALCIUM 8.9 mg/dL (8.5-10.1)
[2021-08-22 02:34] LABS: CREATININE 0.9 mg/dL (0.55-1.3)
[2021-08-22] MEDS ORDERED: ACETAMINOPHEN 325 MG TABLET (FP) PO PRN (04:49)
[2021-08-22 08:23] LABS: BASO % 0.3 % (0-2.0); EOS % 1.7 % (0-4.5); HEMATOCRIT 38.3 % (32.4-45.2); LYMPH % 25.9 % (8-40); MCH 27.9 pg (25.7-33.7); MCHC 33.9 g/dl (32.0-36.0); MEAN CELL VOLUME 82.5 fl (80-96); MEAN PLT VOLUME 6.6 fl (7.5-11.1); MONO % 9.4 % (3.8-10.2); NEUT % 62.7 % (42.8-82.8); PLATELET COUNT 403 10^3/uL (134-434); RBC 4.65 M/mm3 (3.60-5.2); RDW 16.1 % (11.6-15.6); WHITE BLOOD COUNT 7.4 K/mm3 (4.0-10.0)
[2021-08-22 08:50] LABS: ALBUMIN 3.3 g/dl (3.4-5.0); BLOOD UREA NITROGEN 10.2 mg/dL (7-18)
[2021-08-22 08:54] LABS: PHOSPHOROUS 3.4 mg/dL (2.5-4.9); TOT PROT 7.8 g/dl (6.4-8.2)
[2021-08-22 08:55] LABS: BILIRUBIN,TOTAL 0.6 mg/dL (0.2-1)
[2021-08-22] MEDS ORDERED: ENOXAPARIN NA (PORCINE) 40 MG/0.4 ML DISP.SYRIN SQ ONE (09:42)
[2021-08-22] MEDS ORDERED: ASPIRIN COATED 81 MG TABLET.EC ONE (09:42)
[2021-08-22 09:50] VITALS: BP 124/86; PULSE 92; TEMP 98.2
[2021-08-22] MEDS ORDERED: ASPIRIN COATED 81 MG TABLET.EC PO SCH (10:00)
[2021-08-22] MEDS ORDERED: ENOXAPARIN NA (PORCINE) 40 MG/0.4 ML DISP.SYRIN SQ SCH (10:00)
== END 2021-08-22 18:00 | disposition left against medical advice (07) | DRG 69 ==
LOC: JER 21:18 → JERBED 08-22 04:13
DX: G45.9 Transient cerebral ischemic attack, unspecified (principal); I48.91 Unspecified atrial fibrillation; E06.3 Autoimmune thyroiditis; K21.9 Gastro-esophageal reflux disease without esophagitis; N28.1 Cyst of kidney, acquired; D25.9 Leiomyoma of uterus, unspecified; K59.00 Constipation, unspecified; K64.9 Unspecified hemorrhoids; Z95.2 Presence of prosthetic heart valve; D18.09 Hemangioma of other sites; I48.0 Paroxysmal atrial fibrillation; R51.9 Headache, unspecified
CPT/HCPCS: 36415; 70450-TC; 70551-TC; 71045-TC-FY; 80048; 80053; 80061; 81003; 82550; 82553; 82962; 83036; 83605; 83735; 84100; 84484; 85025; 85610; 85730; 93005; 93010; 93880-TC; 93970-TC; 99285-25; C9803; U0003; U0005